=== PATIENT | male | born 1980 | race Caucasian/White ===

== ENCOUNTER 2017-01-20 15:33 | Emergency (ER) | payer OTHER ==
[2017-01-20 16:14] VITALS: BMI 20.9
[2017-01-20 16:16] VITALS: RESP 16; TEMP 98.9; O2SAT 99
[2017-01-20] MEDS ORDERED: Amoxicillin-Clav 875-125 mg Tab PO STA (17:53)
--- NOTE | 2017-01-20 18:00 | ED PDOC ---
Arrival/HPI - General Chief Complaint: Medical Clearance Time Seen by Provider: 01/20/17 17:10 Historian: Patient - History of Present Illness Narrative History of Present Illness (Text): 01/20/17 20:39 36-year-old male presents today for concerns for swelling of his glands in his throat. Patient denies pain. Denies fevers or chills. Denies difficulty breathing or swallowing. Patient states yesterday after eating some food he thought that his glands became swollen. Patient states his mother thought that he should have it evaluated. He denies tingling sensation in the mouth. He denies any pain. He denies difficulty breathing or swallowing states that he ambulated from the light route to the hospital without any difficulty. Patient denies a sore throat. He denies earache. Denies cough. Denies any other complaints Time/Duration: Other (1day) Symptom Onset: Sudden Quality: Other (no pain) Past Medical History - Provider Review Nursing Documentation Reviewed: Yes - Travel History Have you recently traveled outside [place] w/in the past 3 mons?: No - Infectious Disease Hx of Infectious Diseases: None - Tetanus Immunization Tetanus Immunization: Unknown - Past Medical History Past Medical History: No Previous - Musculoskeletal/Rheumatological Hx Falls: No - Psychiatric Hx Substance Use: No - Surgical History Hx Tonsillectomy: Yes Other/Comment: l achilles - Anesthesia Hx Anesthesia: Yes Hx Anesthesia Reactions: No Hx Malignant Hyperthermia: No - Suicidal Assessment Feels Threatened In Home Enviroment: No Family/Social History - Physician Review Nursing Documentation Reviewed: Yes Family/Social History: Unknown Family HX Smoking Status: Never Smoked Hx Alcohol Use: Yes (SOCIALLY) Frequency of alcohol use: Socially Hx Substance Use: No Hx Substance Use Treatment: No Allergies/Home Meds Allergies/Adverse Reactions: Allergies No Known Allergies Allergy (Verified 11/10/11 19:44) Review of Systems - Review of Systems Constitutional: absent: Fatigue, Fevers ENT: Other Respiratory: absent: SOB, Cough Cardiovascular: absent: Chest Pain, Palpitations Gastrointestinal: absent: Abdominal Pain, Nausea, Vomiting Genitourinary Male: absent: Dysuria, Frequency Musculoskeletal: absent: Arthralgias, Back Pain Skin: absent: Rash, Pruritis Neurological: absent: Headache, Dizziness Hemo/Lymphatic: Adenopathy Physical Exam Vital Signs Reviewed: Yes Vital Signs Temp Pulse Resp BP Pulse Ox 01/20/17 18:30 82 16 129/87 99 01/20/17 16:16 98.9 F 63 16 120/81 99 Temperature: Afebrile Blood Pressure: Normal Pulse: Regular Respiratory Rate: Normal Appearance: Positive for: Well-Appearing, Non-Toxic, Comfortable Pain Distress: None Mental Status: Positive for: Alert and Oriented X 3 - Systems Exam Head: Present: Atraumatic Ears: Present: Normal, NORMAL TM Mouth: Present: Moist Mucous Membranes, Normal Lips, Normal Tounge, Normal Teeth. No: Drooling, Trismus Pharnyx: Present: Normal, Other (no elevation of the floor of the tongue). No: ERYTHEMA, EXUDATE, TONSILS ENLARGED, Peritonsilar Swelling, Uvular Deviation, Muffled/Hoarse Voice, Soft Palate/Uvular Edema Nose (External): Present: Atraumatic Nose (Internal): Present: Normal Inspection, Moist. No: Clear Mucous Neck: Present: Normal Range of Motion, Lymphadenopathy (+ bilateral anterior cervical adenopathy), Trachea Midline, Other (no erythema; no edema. ) Respiratory/Chest: Present: Clear to Auscultation Cardiovascular: Present: Regular Rate and Rhythm Neurological: Present: GCS=15 Skin: Present: Warm, Dry, Normal Color. No: Rashes Psychiatric: Present: Alert, Oriented x 3 Medical Decision Making ED Course and Treatment: 01/20/17 17:54 Patient is nontoxic well-appearing in no distress with stable vital signs c/o swollen gland since yesterday. pt in no distress. speaking in full sentences. no signs of edema/swelling to the throat, no elevation of the floor of the tongue; no signs of cellulitis of the neck. will place patient on augmentin for tender lymph nodes; advised f/u with PMD/ ENT. advised immediate return if symptoms worsen,persist or if new symptoms develop. Patient verbalizes understanding of discharge instructions and need for immediate followup. impression; lymphadenitis Motrin every 6 hours as needed for pain Augmentin 1 tablet twice daily 10 days Follow-up with the ENT specialist within the next 2 days Follow-up with primary care physician within the next 2 days Return if symptoms worsen persist or if new symptoms develop: High fevers, increasing pain, increasing swelling, difficulty breathing or swallowing or if any other concerning symptoms develop - Medication Orders Current Medication Orders: Discontinued Medications Amoxicillin/Clavulanate Potassium (Augmentin 875 Mg-125 Mg Tab) 1 tab PO STAT STA PRN Reason: Protocol Stop: 01/20/17 17:54 Last Admin: 01/20/17 18:15 Dose: 1 tab Disposition/Present on Arrival - Present on Arrival Any Indicators Present on Arrival: No History of DVT/PE: No History of Uncontrolled Diabetes: No Urinary Catheter: No History of Decub. Ulcer: No History Surgical Site Infection Following: None - Disposition Have Diagnosis and Disposition been Completed?: Yes Diagnosis: Lymphadenitis Disposition: HOME/ ROUTINE Disposition Time: 17:54 Patient Plan: Discharge Condition: GOOD Additional Instructions: Motrin every 6 hours as needed for pain Augmentin 1 tablet twice daily 10 days Follow-up with the ENT specialist within the next 2 days Follow-up with primary care physician within the next 2 days Return if symptoms worsen persist or if new symptoms develop: High fevers, increasing pain, increasing swelling, difficulty breathing or swallowing or if any other concerning symptoms develop Prescriptions: Amoxicillin/Clavulanate [Augmentin 875 MG-125 MG] 1 tab PO BID #20 tab Referrals: [facility] [place] [Outside] - Follow up with primary All Newman DO [Staff Provider] - Follow up with primary José Manuel Ly MD [Staff Provider] - Follow up with primary Forms: WORK NOTE
[2017-01-20 18:47] VITALS: BP 129/87; PULSE 82
== END 2017-01-20 19:08 | disposition home or self-care (01) ==
LOC: ED 15:33
DX: I88.9 Nonspecific lymphadenitis, unspecified (principal)

== ENCOUNTER 2017-10-15 12:15 | Emergency (ER) | payer OTHER ==
[2017-10-15 12:25] VITALS: BMI 20.5
[2017-10-15 12:31] VITALS: BP 132/78; PULSE 79; RESP 18; TEMP 98; O2SAT 100
[2017-10-15] MEDS ORDERED: TDAP Vaccine 0.5 mL Syr IM ONE (13:02)
[2017-10-15] MEDS ORDERED: Lidocaine 1% Inj (20ml) ONE (14:27)
--- NOTE | 2017-10-15 15:14 | ED PDOC ---
Arrival/HPI - General Chief Complaint: Abnormal Skin Integrity Time Seen by Provider: 10/15/17 13:02 Historian: Patient - History of Present Illness Narrative History of Present Illness (Text): 10/15/17 15:16 37-year-old male presents today with a laceration to the upper lip. Patient states last night at around 2:30 3:00 in the morning he was getting into a uber and fell sustaining a laceration. Patient denies headaches dizziness or weakness. Denies fevers or chills. Patient states this morning his boss told him that he should have his laceration looked at and not come into work. Patient denies dental pain. Denies trismus or drooling. Patient states his tetanus shot is up-to-date. Patient denies dizziness or weakness. No chest pain or shortness of breath. Patient denies abdominal pain. No other complaints Time/Duration: Other (230-3am last night) Quality: Other (no pain) Past Medical History - Provider Review Nursing Documentation Reviewed: Yes - Travel History Have you recently traveled outside [place] w/in the past 3 mons?: No - Infectious Disease Hx of Infectious Diseases: None - Tetanus Immunization Tetanus Immunization: Up to Date - Past Medical History Past Medical History: No Previous - Musculoskeletal/Rheumatological Hx Falls: No - Psychiatric Hx Psychophysiologic Disorder: No Hx Substance Use: No - Surgical History Hx Tonsillectomy: Yes Other/Comment: l achilles - Anesthesia Hx Anesthesia: Yes Hx Anesthesia Reactions: No Hx Malignant Hyperthermia: No - Suicidal Assessment Feels Threatened In Home Enviroment: No Family/Social History - Physician Review Nursing Documentation Reviewed: Yes Family/Social History: Unknown Family HX Smoking Status: Never Smoked Hx Alcohol Use: Yes (SOCIALLY) Hx Substance Use: No Hx Substance Use Treatment: No Allergies/Home Meds Allergies/Adverse Reactions: Allergies No Known Allergies Allergy (Verified 10/15/17 12:28) Review of Systems - Review of Systems Constitutional: absent: Fatigue ENT: absent: Sore Throat, Sinus Congestion Respiratory: absent: SOB, Cough Cardiovascular: absent: Chest Pain, Palpitations Gastrointestinal: absent: Abdominal Pain, Nausea, Vomiting Musculoskeletal: absent: Arthralgias, Back Pain, Neck Pain Skin: Laceration Neurological: absent: Headache, Dizziness Psychiatric: absent: Anxiety, Depression Physical Exam Vital Signs Reviewed: Yes Vital Signs Temp Pulse Resp BP Pulse Ox 10/15/17 12:30 98.0 F 79 18 132/78 100 Temperature: Afebrile Blood Pressure: Normal Pulse: Regular Respiratory Rate: Normal Appearance: Positive for: Well-Appearing, Non-Toxic, Comfortable Pain Distress: None Mental Status: Positive for: Alert and Oriented X 3 - Systems Exam Head: Present: Laceration (there is a 2cm jagged, gapping horizontal laceration noted to the philtrum of the lip; slight bleeding noted. ) Pupils: Present: PERRL Extroacular Muscles: Present: EOMI Conjunctiva: Present: Normal Ears: Present: Normal, NORMAL TM Mouth: Present: Moist Mucous Membranes. No: Drooling, Trismus, Normal Lips ( laceration to philtrum and abrasion noted to the mucosa of the upper lip. ) Pharnyx: Present: Normal Nose (External): Present: Atraumatic Nose (Internal): Present: Normal Inspection. No: Septal Hematoma Neck: Present: Normal Range of Motion. No: MIDLINE TENDERNESS, Paraspinal Tenderness Respiratory/Chest: Present: Clear to Auscultation, Good Air Exchange. No: Respiratory Distress, Accessory Muscle Use Cardiovascular: Present: Regular Rate and Rhythm, Normal S1, S2. No: Murmurs Abdomen: No: Tenderness, Rebound, Guarding Upper Extremity: Present: Normal ROM Lower Extremity: Present: Normal ROM Neurological: Present: GCS=15, Speech Normal Skin: Present: Warm, Dry, Normal Color Psychiatric: Present: Alert, Oriented x 3 Medical Decision Making ED Course and Treatment: 10/15/17 15:Patient is nontoxic well appearing in no distress. Vital signs are stable. pt with laceration to upper lip after fall <12 hours old. Wound irrigated well with high pressure irrigation Tetanus up to date; last tetanus 2014 keflex; po Laceration repair: 5, 6.0 prolene sutures placed. Bacitracin applied. Patient was advised to keep the wound clean and dry, apply bacitracin twice daily. Advised to return immediately if signs of infection develop or return if any other concerning symptoms develop. advised return in 5 days for suture removal; advised f/u with plastic surgeon; Patient verbalizes understanding of discharge instructions and need for immediate followup. all aspects of this case were discussed the attending of record. Impression: Laceration, lip Motrin every 6 hours as needed for pain Keflex; 1 capsule 4 times daily x 7 days. Keep the wound clean and dry, apply bacitracin twice daily Return in 5 days for suture removal Return immediately if signs of infection develop: High fevers, increasing pain, redness, swelling, purulent discharge Follow up with the plastic surgeon within the next 2 days. Followup with primary care physician within the next 2 days Return if any other concerning symptoms develop - Medication Orders Current Medication Orders: Discontinued Medications Cephalexin Monohydrate (Keflex) 500 mg PO STAT STA PRN Reason: Protocol Stop: 10/15/17 13:03 Last Admin: 10/15/17 13:29 Dose: 500 mg Tetanus/Reduced Diphtheria/Acell Pertussis (Boostrix Vaccine Inj) 0.5 ml IM .ONCE ONE Stop: 10/15/17 13:03 Procedure: Wound Repair - Procedure Procedure: Wound Repair: laceration. lip - Performed by Performed by: Mid-level Provider - Indications Indication(s):: Laceration - Location Location:: Lip (philtrum) Shape:: Stellate, Other (jagged) Dimensions Length cm: 2cm - Anesthetic Technique Anesthetic Technique: Local Local/Regional Anesthetic:: Lidocaine 1% (2cc) - Debris Debris:: None - Irrigated Irrigated with ml of normal saline: copious amounts of NS using high pressure irrigation - Complexity Complexity:: Simple (one layer) - Wound repair method Sutures:: # (5), Size (6.0), Type (prolene), Technique (interrupted) - Complications Complications: none - Patient tolerated procedure Patient Tolerated Procedure:: Well Disposition/Present on Arrival - Present on Arrival Any Indicators Present on Arrival: No History of DVT/PE: No History of Uncontrolled Diabetes: No Urinary Catheter: No History of Decub. Ulcer: No History Surgical Site Infection Following: None - Disposition Have Diagnosis and Disposition been Completed?: Yes Diagnosis: Lip laceration Disposition: HOME/ ROUTINE Disposition Time: 15:12 Patient Plan: Discharge Condition: GOOD Discharge Instructions (ExitCare): Laceration Repair Additional Instructions: Motrin every 6 hours as needed for pain Keflex; 1 capsule 4 times daily x 7 days. Keep the wound clean and dry, apply bacitracin twice daily Return in 5 days for suture removal Return immediately if signs of infection develop: High fevers, increasing pain, redness, swelling, purulent discharge Follow up with the plastic surgeon within the next 2 days. Followup with primary care physician within the next 2 days Return if any other concerning symptoms develop Prescriptions: Cephalexin [Keflex] 500 mg PO QID #28 capsule Referrals: Naresh Carrasco MD [Staff Provider] - Follow up with primary Shamika Dickey MD [Staff Provider] - Follow up with primary Artis Elkins DO [Staff Provider] - Follow up with primary Forms: [facility] (Kiswahili), WORK NOTE
== END 2017-10-15 15:26 | disposition home or self-care (01) ==
LOC: ED 12:15
DX: S01.511A Laceration without foreign body of lip, initial encounter (principal); W01.0XXA Fall on same level from slipping, tripping and stumbling without subsequent striking against object, initial encounter; Y92.89 Other specified places as the place of occurrence of the external cause

== ENCOUNTER 2017-10-20 14:07 | Emergency (ER) | payer OTHER ==
[2017-10-20 14:33] VITALS: BMI 20.8
[2017-10-20 14:35] VITALS: BP 134/81; PULSE 77; RESP 18; TEMP 98.1; O2SAT 99
--- NOTE | 2017-10-20 14:49 | ED PDOC ---
Arrival/HPI - General Chief Complaint: Wound Check Time Seen by Provider: 10/20/17 14:49 Historian: Patient - History of Present Illness Narrative History of Present Illness (Text): 10/20/17 14:49 This 37 yo male presents to this emergency department for sutures removal. Patient had a laceration repaired x 5 days ago. Patient has been cleaning wound with Peroxide. Patient denies other complain. Patient has been complaint with ABX. Time/Duration: Other (see hpi) Context: Home Past Medical History - Provider Review Nursing Documentation Reviewed: Yes - Infectious Disease Hx of Infectious Diseases: None - Tetanus Immunization Tetanus Immunization: Up to Date - Past Medical History Past Medical History: No Previous - Musculoskeletal/Rheumatological Hx Falls: No - Psychiatric Hx Psychophysiologic Disorder: No Hx Substance Use: No - Surgical History Hx Tonsillectomy: Yes Other/Comment: l achilles - Anesthesia Hx Anesthesia: Yes Hx Anesthesia Reactions: No Hx Malignant Hyperthermia: No - Suicidal Assessment Feels Threatened In Home Enviroment: No Family/Social History - Physician Review Nursing Documentation Reviewed: Yes Family/Social History: Other (noncontributory) Smoking Status: Never Smoked Hx Alcohol Use: Yes (SOCIALLY) Hx Substance Use: No Hx Substance Use Treatment: No Allergies/Home Meds Allergies/Adverse Reactions: Allergies No Known Allergies Allergy (Verified 10/15/17 12:28) Review of Systems - Review of Systems Constitutional: Normal. absent: Fatigue, Weight Change, Fevers Eyes: Normal ENT: Normal Respiratory: Normal Cardiovascular: Normal Gastrointestinal: Normal Genitourinary Male: Normal Musculoskeletal: Normal Skin: Other (wound check and sutures removal) Neurological: Normal Endocrine: Normal Hemo/Lymphatic: Normal Psychiatric: Normal Physical Exam Vital Signs Temp Pulse Resp BP Pulse Ox 10/20/17 14:34 98.1 F 77 18 134/81 99 Temperature: Afebrile Blood Pressure: Normal Pulse: Regular Respiratory Rate: Normal Appearance: Positive for: Well-Appearing, Non-Toxic, Comfortable Pain Distress: None Mental Status: Positive for: Alert and Oriented X 3 - Systems Exam Head: Present: Atraumatic, Normocephalic Pupils: Present: PERRL Extroacular Muscles: Present: EOMI Conjunctiva: Present: Normal Mouth: Present: Moist Mucous Membranes, Normal Lips, Normal Tounge. No: Drooling Neck: Present: Normal Range of Motion. No: Meningeal Signs Upper Extremity: Present: Normal Inspection, Normal ROM Lower Extremity: Present: Normal Inspection, Normal ROM Neurological: Present: GCS=15, CN II-XII Intact, Speech Normal Skin: Present: Warm, Dry, Normal Color, Other ((+) healing wound over acanthion area. Moderate amount of eschar was visualized. Sutures are not visualized due to thick eschar). No: Rashes Psychiatric: Present: Alert, Oriented x 3, Normal Insight, Normal Concentration Medical Decision Making ED Course and Treatment: 10/20/17 15:31 Re-evaluation. Patient feels better. Discussed results and plan with patient who expresses understanding. All questions answered and there is agreement with the plan to discharge home with instructions. Patient stable for discharge. Return if symptoms persist or worsen Patient was recommended to clean wound daily and apply Bacitracin ointment. To continue with PO ABX. To return to emergency department if wound becomes infected. To stop using Peroxide or alcohol to clean wound. Re-evaluation Time: 15:32 Reassessment Condition: Re-examined, Improved - Procedure PROCEDURE NOTE (Text): 10/20/17 15:33 PROCEDURE: SUTURE REMOVAL Performed by the emergency provider Location: face, just superior to upper lip Length: 1 cm, skin tear like shape. covered with thick eschar. Eschar was removed Distal CMS: Normal. No deficits. Neurovascularly intact. Preparation: The wound was cleaned with NS and [place]. The area was prepped and draped in the usual sterile fashion. Procedure: In total, 5 sutures were removed. Post-Procedure: Good closure and hemostasis. The patient tolerated the procedure well and there were no complications. CSM remains intact. Disposition/Present on Arrival - Present on Arrival Any Indicators Present on Arrival: No History of DVT/PE: No History of Uncontrolled Diabetes: No Urinary Catheter: No History of Decub. Ulcer: No History Surgical Site Infection Following: None - Disposition Have Diagnosis and Disposition been Completed?: Yes Diagnosis: Encounter for removal of sutures, Encounter for wound re-check Disposition: HOME/ ROUTINE Disposition Time: 15:37 Patient Plan: Discharge Condition: GOOD Discharge Instructions (ExitCare): Stitches Removal Additional Instructions: Call private doctor for wound check in 2 days. Clean wound daily with soap and water only. Continue with antibiotic as instructed by doctor. Return to emergency if wound becomes infected. Referrals: PCP,NO [Primary Care Provider] - Follow up with primary [facility] [Outside] - Follow up with primary [facility] [Outside] - Follow up with primary Forms: [employer] (Wolof), WORK NOTE
== END 2017-10-20 15:46 | disposition home or self-care (01) ==
LOC: ED 14:07
DX: Z48.02 Encounter for removal of sutures (principal)

== ENCOUNTER 2018-03-08 02:23 | Emergency (ER) | payer SELFPAY ==
[2018-03-08 02:27] VITALS: BMI 20.5
[2018-03-08 02:30] VITALS: BP 127/71; PULSE 92; RESP 17; TEMP 98.3; O2SAT 96
--- NOTE | 2018-03-08 02:45 | ED PDOC ---
Arrival/HPI - General Historian: Patient - History of Present Illness Time/Duration: 1-3 hours Symptom Onset: Sudden Symptom Course: Unchanged Quality: Aching Severity Level: 9 <Travon Machado - Last Filed: 03/08/18 04:25> <Saundra Silva - Last Filed: 03/08/18 19:19> - General Chief Complaint: Abnormal Skin Integrity Time Seen by Provider: 03/08/18 02:31 - History of Present Illness Narrative History of Present Illness (Text): 03/08/18 03:12 Patient is a 37 year old male presenting to the ED with a laceration to his left 5th finger. Patient states that he was cutting vegetables when he accidentally cut his finger. Patient denies any fevers, chills, or any other complaints at this time. (Travon Machado) Past Medical History - Provider Review Nursing Documentation Reviewed: Yes - Travel History Have you recently traveled outside [place] w/in the past 3 mons?: No - Infectious Disease Hx of Infectious Diseases: None - Tetanus Immunization Tetanus Immunization: Up to Date - Past Medical History Past Medical History: No Previous - Musculoskeletal/Rheumatological Hx Falls: No - Psychiatric Hx Psychophysiologic Disorder: No Hx Substance Use: No - Surgical History Hx Tonsillectomy: Yes Other/Comment: l achilles - Anesthesia Hx Anesthesia: Yes Hx Anesthesia Reactions: No Hx Malignant Hyperthermia: No - Suicidal Assessment Feels Threatened In Home Enviroment: No <Travon Machado - Last Filed: 03/08/18 04:25> Family/Social History - Physician Review Nursing Documentation Reviewed: Yes Family/Social History: No Known Family HX Smoking Status: Never Smoked Hx Alcohol Use: Yes (SOCIALLY) Frequency of alcohol use: Socially Hx Substance Use: No Hx Substance Use Treatment: No <Travon Machado - Last Filed: 03/08/18 04:25> Allergies/Home Meds <Travon Machado - Last Filed: 03/08/18 04:25> <Saundra Silva - Last Filed: 03/08/18 19:19> Allergies/Adverse Reactions: Allergies No Known Allergies Allergy (Verified 03/08/18 02:25) Home Medications: Home Meds Medication Instructions Recorded Confirmed No Known Home Med 03/08/18 03/08/18 Review of Systems - Physician Review All systems were reviewed & negative as marked: Yes - Review of Systems Constitutional: Normal. absent: Fevers, Night Sweats Eyes: Normal ENT: Normal Respiratory: Normal. absent: SOB, Wheezing Cardiovascular: Normal. absent: Chest Pain Gastrointestinal: Normal. absent: Abdominal Pain, Constipation, Diarrhea Genitourinary Male: Normal Musculoskeletal: Normal Skin: Laceration Neurological: Normal. absent: Headache Psychiatric: Normal. absent: Anxiety, Depression <Travon Machado - Last Filed: 03/08/18 04:25> Physical Exam Vital Signs Reviewed: Yes Temperature: Afebrile Blood Pressure: Normal Pulse: Regular Respiratory Rate: Normal Appearance: Positive for: Well-Appearing, Non-Toxic, Comfortable Pain Distress: Mild Mental Status: Positive for: Alert and Oriented X 3 - Systems Exam Head: Present: Atraumatic, Normocephalic Pupils: Present: PERRL Extroacular Muscles: Present: EOMI Conjunctiva: Present: Normal Mouth: Present: Moist Mucous Membranes Respiratory/Chest: Present: Clear to Auscultation, Good Air Exchange. No: Respiratory Distress, Accessory Muscle Use, Wheezes, Rales, Rhonchi Cardiovascular: Present: Regular Rate and Rhythm, Normal S1, S2. No: Murmurs, Rub, Gallop Abdomen: Present: Normal Bowel Sounds. No: Tenderness, Distention, Peritoneal Signs Upper Extremity: Present: Normal Inspection. No: Cyanosis, Edema Lower Extremity: Present: Normal Inspection. No: Edema Neurological: Present: GCS=15, CN II-XII Intact, Speech Normal Skin: Present: Warm, Dry, Normal Color, Laceration (Laceration measuring 3 cm x 1 cm to his left 5th finger on PIP joint). No: Rashes Psychiatric: Present: Alert, Oriented x 3, Normal Insight, Normal Concentration <Travon Machado - Last Filed: 03/08/18 04:25> Vital Signs Temp Pulse Resp BP Pulse Ox 03/08/18 02:26 98.3 F 92 H 17 127/71 96 Medical Decision Making Reassessment Condition: Re-examined, Improved <Travon Machado - Last Filed: 03/08/18 04:25> <Saundra Silva - Last Filed: 03/08/18 19:19> ED Course and Treatment: 03/08/18 03:13 Impression: Patient is a 37 year old male presenting to the ED with a cut to his right 5th finger. Differential Diagnosis included but are not limited to: - Finger laceration Plan: -- Sutures Progress Notes: 03/08/18 03:43 - Laceration on left 5th finger on dorsum side of PIP joint measuring 3 cm x 1 cm. - Attending doctor sutured finger. Cleaned finger with iodine. Injected area with lidocaine, used 5.0 prolene, 3 simple interrupted sutures. - Patient is stable for discharge. (Travon Machado) Disposition/Present on Arrival - Present on Arrival Any Indicators Present on Arrival: No History of DVT/PE: No History of Uncontrolled Diabetes: No Urinary Catheter: No History of Decub. Ulcer: No History Surgical Site Infection Following: None - Disposition Have Diagnosis and Disposition been Completed?: Yes Disposition Time: 03:46 Patient Plan: Discharge <Travon Machado - Last Filed: 03/08/18 04:25> <Saundra Silva - Last Filed: 03/08/18 19:19> - Disposition Diagnosis: Finger laceration Disposition: HOME/ ROUTINE Condition: IMPROVED Discharge Instructions (ExitCare): Laceration Repair With Stitches (DC) Additional Instructions: ROSAURA JOSHI JR, thank you for letting us take care of you today. Your provider was and you were treated for CUT FINGER. The emergency medical care you received today was directed at your acute symptoms. If you were prescribed any medication, please fill it and take as directed. It may take several days for your symptoms to resolve. Return to the Emergency Department if your symptoms worsen, do not improve, or if you have any other problems. Please contact your doctor or call one of the physicians/clinics you have been referred to that are listed on the Patient Visit Information form that is included in your discharge packet. Bring any paperwork you were given at discharge with you along with any medications you are taking to your follow up visit. Our treatment cannot replace ongoing medical care by a primary care provider outside of the emergency department. Thank you for allowing the [facility] team to be part of your care today. If you had an X-Ray or CT scan: A Radiologist will review the ED reading if any change in treatment is needed we will contact you. If you had a blood, urine, or wound culture: It will take several days for the results, if any change in treatment is needed we will contact you. If you had an STI test: It will take 48 hours for the results. Please call after 1 week if you have not heard back. Referrals: Myriam Sykes MD [Medical Doctor] - Follow up with primary Forms: [employer] (Slovenian) Laceration - Laceration Repair No standard instances Wound Length (In cm): 1 Description Of Wound: Linear Wound Cleansed With: Betadine, Sterile Saline Anesthesia: Lidocaine 2% Wound Examination: Irrigated With Saline Wound Closure: Suture Suture Technique And Material Used: Interrupted (3 sutures), Prolene (5-0) Wound Complexity: Simple <Saundra Silva - Last Filed: 03/08/18 19:19>
[2018-03-08] MEDS ORDERED: Lidocaine PF 2% (5 ml) Inj (For Cardiac Arrhy) ONE (03:04)
[2018-03-08] MEDS ORDERED: Bacitracin 500 Units/gm Oint Foilpak UD ONE (03:54)
== END 2018-03-08 04:00 | disposition home or self-care (01) ==
LOC: ED 02:23
DX: S61.217A Laceration without foreign body of left little finger without damage to nail, initial encounter (principal); Y93.G1 Activity, food preparation and clean up